=== PATIENT | male | born 1950 | race Caucasian/White ===

== ENCOUNTER 2023-11-09 19:09 | Emergency (ER) | payer MEDICARE, SELFPAY ==
[2023-11-09 19:21] VITALS: BP 145/76
[2023-11-09 19:22] VITALS: BMI 26.1
--- NOTE | 2023-11-09 19:33 | EDRN ---
Pt's says he leaned over at dinner and said he felt weak and was going to pass out. When he passed out, his eyes rolled up in his head. He opened his eyes and said 'What are you doing?' and then went out again. This is when CPR was started.
says pt looks better now, his coloring was sanford earlier. Pt says he felt alright when he went to dinner. Pt adds he is under a lot of stress, is settling his brother's estate on Saturday and has a very stressful job. Pt received anesthesia
yesterday at dentist's office when he had a post put in a tooth. Pt remembers feeling dizzy earlier. Pt's complaint now is feeling generally weak and tired.
[2023-11-09] MEDS: NSS 1000 IV (19:39)
[2023-11-09 19:41] LABS: % Basophils 0.7 % (0-2); % Eosinophils 2.5 % (0-6); % Immature Granulocytes 0.1 % (0-0.5); % Lymphocytes 35.3 % (20.5-51.1); % Neutrophils 50.4 % (42.2-75.2); Absolute Basophils 0.1 10^3/uL (0-0.2); Absolute Eosinophils 0.2 10^3/uL (0-0.7); Absolute Lymphocytes 2.7 10^3/uL (1.2-3.4); Absolute Monocytes 0.8 10^3/uL (0.1-0.6); Absolute Neutrophils 3.9 10^3/uL (1.4-6.5); Hematocrit 34.2 % (39.0-52.0); Hemoglobin 11.7 g/dL (13.0-18.0); Mean Corp Hgb Conc. 34.2 g/dL (33.0-37.0); Mean Corpuscular Hgb 30.8 pg (27.0-31.0); Mean Platelet Volume 10.3 fL (7.4-10.4); Nucleated Red Blood Cells % 0 % (-); Platelet Count 229 10^3/uL (130-400); Red Cell Dist. Width 12.9 % (11.5-14.5); White Blood Cell Count 7.6 10^3/uL (4.8-10.8)
--- NOTE | 2023-11-09 19:46 | ED.GENMED ---
History of Present Illness
General
Chief Complaint: Unresponsive
Source: patient and spouse
Exam Limitations: none
Time Seen by Provider: 11/09/23 19:19
Travel History
Have you had any contact with someone who has COVID-19?: No
Do you have any symptoms of coronavirus? Fever > 100 degrees, chills, cough, shortness of breath, sore throat, loss of taste or smell, muscle aches, or headache?: No
History of Present Illness
History of Present Illness:
This is a 73 year old male that comes in with c/o syncope. states that they went out for dinner and he leaned over to her and said that he didn't feel good. States that he passed out but this was only seconds and he came around. States that he
was a sanford yellow. Stae that he then passed out again and there was a nurse there that said he wasn't breathing and started CPR. Staes that he opened his eyes and talked but this was about a min. State that he is getting Proton Therapy at [place] and
yesterday he had a post placed in the gum line under anesthesia. States that he has been getting hor and cold at night but was told that this was normal for the Proton Therapy. States that he has had urinary burning but this goes along with his
therapy and they tested his urine and it was negative. States that he was dizzy when this happened. Denies any chest pain, SOB, abd pain, nausea, vomiting, diarrhea, headache.
Past History
Past History
ED Past Medical History: Cancer (Prostate and Skin), HTN, Hypercholesterolemia and Psychiatric (Anxiety)
ED Past Surgical History: Cardiac (Bypass with valve replaced) and Tonsilectomy
Social History
Tobacco: Non-smoker
Alcohol: Occasional (Had one drink tonight and hadn't drank in 4 months)
Personal:
Living: with family
Employment: Employed
Review of Systems
Review of Systems
All Other Systems: ROS reviewed and negative except as documented in HPI and ROS
Constitutional: Reports no symptoms; Denies fever or chills
EENT: Reports no symptoms
Respiratory: Reports no symptoms; Denies cough or trouble breathing
Cardiac: Reports no symptoms; Denies chest pain
ABD/GI: Reports no symptoms; Denies abdominal pain, nausea, vomiting or diarrhea
: Reports no symptoms
Musculoskeletal: Reports no symptoms
Skin: Reports no symptoms
Neurological: Reports dizzy; Denies headache
Psychiatric: Reports no symptoms
Phy Exam
General Physical Exam
General Presentation: no apparent distress
General age: appears stated age
General Skin: warm, dry and pale
General Habitus: elderly
General Mental: alert
General Hydration: dry mucous membranes
ENT Exam
ENT Exam: TM's normal, pharynx normal and neck supple
Eye Exam
Eye Exam: EOMI
Cardiovascular Exam
Cardiovascular Exam: regular rate/rhythm, no edema, no murmur and normal peripheral pulses
Pulmonary Exam
Pulmonary Exam: lungs clear, no respiratory distress, no rales, chest non tender, no crackles, no wheezing and no cough
Gastrointestinal Exam
Gastrointestinal Exam: normal bowel sounds, non tender, soft, no organomegaly, no pulsatile mass and non distended
Musculoskeletal Exam
Musculoskeletal Exam: full ROM and no edema
Skin Exam
Skin Exam: normal color, warm/dry, no rash and no petechia
Psychiatric Exam
Psychiatric Exam: normal mood/affect
Course
Orders/Labs/Results
Orders:
Orders
11/09/23 19:10
Electrocardiogram (*1) Urgent
Reason for Study: Chest Pain
Cardiac Monitoring- Treatment ONCE
EKG- Treatment ONCE
IV Insert/Care/Rem.- Treatment PRN
O2 Therapy [RESP] Urgent
Titrate/Wean O2 to maintain O2 sat greater than (%): 90
Special Instructions: Maintain sats >/=90%
Pulse Ox/spot Check [RESP] Urgent
Quantity: 1
Special Instructions: ON ROOM AIR
11/09/23 19:30
Basic Metabolic Panel Urgent
Complete Blood Count/With Diff Urgent
Troponin I Urgent
11/09/23 19:37
0.9% Sodium Chloride 1000 ml [Nss] 1,000 ml IV BOLUS
11/09/23 19:45
CT Head W/o Iv Contrast Urgent
Comment:
Reason For Exam: Syncope, Dizziness
11/09/23 19:54
CR Chest - 2 Views Urgent
Comment:
Reason For Exam: Dizziness, Syncope.
11/09/23 20:28
Hep Liver [[id number]] Urgent
Potassium Urgent
11/09/23 22:30
Electrocardiogram (*1) Urgent
Reason for Study: Syncope
Other Reason for Exam: Repeat with Troponin
EKG- Treatment ONCE
11/09/23 22:36
Troponin I Urgent
Abnormal Lab Results
11/09/23
19:30
RBC 3.80 L 10^6/uL
(4.70-6.10)
Hgb 11.7 L g/dL
(13.0-18.0)
Hct 34.2 L %
(39.0-52.0)
Absolute Monos (auto) 0.8 H 10^3/uL
(0.1-0.6)
Monocytes % 11.0 H %
(1.7-9.3)
Carbon Dioxide 21 L mmol/L
(22-30)
BUN 27 H mg/dl
(9-20)
Glucose 117 H mg/dl
(70-99)
11/09/23 19:30
11/09/23 20:28
H/H slightly low. , Carbon dioxide slightly low. Dehydration. Glucose nonfasting. both Troponin <0.012
Vital Signs
Initial and Last Documented VS:
Initial Vital Signs
Temp Pulse Resp BP Pulse Ox
97.8 F 73 24 145/76 98
11/09/23 19:21 11/09/23 19:21 11/09/23 19:21 11/09/23 19:21 11/09/23 19:21
Last Documented Vital Signs
Temp Pulse Resp BP Pulse Ox
97.8 F 72 20 150/78 95
11/09/23 19:21 11/09/23 23:00 11/09/23 23:00 11/09/23 23:00 11/09/23 21:00
MDM/Problems Addressed
Differential Diagnosis Includes:
Syncope. Dehydration.
MDM/Problems Addressed:
This is a 73 year old male that comes in with c/o syncope. states that he leaned over and said he didn't feel good and passed out for a second and then seemed fine. States that he then passed out again and [facility]
said he was not breathing and started CPR. States that he came around in about 1 min and was talking.
Will check labs, CT head and chest X-ray.
Back into see patent. States that he is feeling much better. Explained that this may be a combination of Dehydration, him having anesthesia yesterday and the alcohol tonight. Explained that he most likely passed out. Explained that it he was not
breathing or his heart had stopped people just done coma round in a min and start talking right away. Will wait for second Troponin and if normal discharge patient.
Repeat ECG: Rate 70, NSR, Normal axis. Normal QRS, negative for ischemia.
Chronic conditions affecting care: Other (Proton therapy)
Acute Exacerbation and/or Progression of Chronic Illness:
NA
*Radiology
Radiology exam reviewed: preliminary read by ED provider (Chest- Negative for acute disease) and radiology read reviewed (CT head night hawk- No acute intracranial findings. Senescent changes. Vascular calcifications. )
*EKG
Interpreted by ED Provider?: Yes
Heart Rate: 66
Rate: normal
Rhythm: sinus and PAC's
[place]: normal axis
Interval: normal interval
QRS Pattern: normal QRS
Ischemia: no ischemia
*Horologist Interpretation
Rate: normal
Heart Rate: 68
Rhythm: sinus
*Critical Care Note
Total Time (30-74mins, 75-104mins- exclusive of procedures): Not Applicable
ED Attending Note
-
Portions of this chart may have been created with voice recognition software.� Occasional wrong word or��sound alike� substitutions may have occurred due to the inherent limitations of voice recognition software.
Discharge Plan
Departure
Patient Disposition: Home (Routine Discharge)
Date of Disposition: 11/09/23
Time of Disposition: 23:57
Patient with high blood pressure during this ER visit?: Yes
Condition: Good
Covid-19: Not Applicable
Discharge Problem:
Acute dehydration, Syncope
Instructions: Dehydration, Adult (DC), Syncope (Fainting) (DC), BLOOD PRESSURE
Referrals:
DESTINEY,JOSE D [Other]
Activity Restrictions/Additional Instructions:
As discussed, your blood work shows that you were dehydration. Please increase your water intake to 8-8oz glasses daily. Your Troponin are both normal along with your CT of the head. Your ECG is normal. Please follow up with the family doctor for
recheck in the next 2- 3 days. Please increase your water intake to 8-8oz glasses daily. IF YOU HAVE ANY OTHER CONCERNS PLEASE RETURN TO THE EMERGENCY ROOM.
Interventions
Interventions:
*Risk Screen - Suicide Last Done: 11/09/23 19:11
*General Assessment Last Done: 11/09/23 19:11
*Neglect/Abuse Screening Last Done: 11/09/23 19:11
*ED COVID-19 Vaccine History Last Done: 11/09/23 19:11
ED- Neurological Assessment Last Done: 11/09/23 19:37
Discharge Date and Time
Print Language: UKRAINIAN
[2023-11-09 20:00] VITALS: BP 139/66
[2023-11-09 20:05] LABS: Troponin I < 0.012 ng/ml
[2023-11-09 20:26] LABS: Blood Urea Nitrogen 27 mg/dl (9-20); Calcium 10.2 mg/dl (8.4-10.2); Carbon Dioxide 21 mmol/L (22-30); Chloride 106 mmol/L (98-107); Estimated Creatinine Clearance 57 ml/min; Glucose 117 mg/dl (70-99); Sodium 136 mmol/L (135-145); eGFR > 60.00
[2023-11-09 20:59] LABS: ALT (SGPT) 25 U/L (0-50); AST (SGOT) 39 U/L (17-59); Alkaline Phosphatase 61 U/L (38-126); Direct Bilirubin 0.4 mg/dl (0.0-0.4); Potassium 3.8 mmol/L (3.5-5.1); Total Bilirubin 0.6 mg/dl (0.2-1.3); Total Protein 6.3 g/dl (6.3-8.2)
[2023-11-09 21:00] VITALS: BP 138/76
[2023-11-09 22:38] VITALS: BP 134/69
[2023-11-09 23:00] VITALS: BP 150/78
[2023-11-09 23:08] LABS: Troponin I < 0.012 ng/ml
== END 2023-11-10 00:27 | disposition home or self-care (01) ==
LOC: EMR 19:09
PROVIDERS: Clinical Nurse Specialist Family Health; EMERGENCY PHYSICIAN Emergency Medicine
DX: E86.0 Dehydration (principal); R55 Syncope and collapse; I10 Essential (primary) hypertension; E78.00 Pure hypercholesterolemia, unspecified; F41.9 Anxiety disorder, unspecified; Z85.46 Personal history of malignant neoplasm of prostate
CPT/HCPCS: 99284; 96360; 70450; 71046; 80048; 80076; 84132; 84484; 85025; 93005